=== PATIENT | female | born 1955 | race African-American/Black ===

== ENCOUNTER 2023-03-12 11:33 | Outpatient (AMB) | payer MEDICARE, SELFPAY ==
--- NOTE | 2023-03-12 11:43 | HO.NEPHOV ---
HPI HPI Comments History of Present Illness Details Nancy is a pleasant 67-year-old woman with a history of chronic disease in a setting of coronary disease status post stent placement history of cardiac arrest status post defibrillator and hypertension. She is here for her usual follow-up. She is on both Entresto and Aldactone. She had an episode of hyperkalemia in the past during which time these medications were held. There been restarted after renal function returned to baseline. She has no shortness of breath No significant edema. No urinary symptoms. Appetite is fair Vital Signs 03/12/23 11:51 Height 5 ft 4 in Weight 184 lb BMI 31.6 BP 142/80 H Blood Pressure Location Rt brachial Position Sitting Pulse 80 Pulse Source Pulse Oximeter Pulse Oximetry (%) 98 Oxygen Delivery Method Room Air Physical Exam Vital Signs: Last Vital Signs Pulse 80 03/12/23 11:51 BP 142/80 H 03/12/23 11:51 Pulse Ox 98 03/12/23 11:51 Oxygen Delivery Method Room Air 03/12/23 11:51 BMI result Body Mass Index 31.6 Const General: comfortable Nutritional Appearance: well nourished Orientation/consciousness: patient oriented x3 HEENT Head: No normal to inspection Mouth: moist mucous membranes Neck Neck: Yes supple and Yes no JVD Resp Auscultation: clear to auscultation bilaterally, no rales and rub present Cardio Jugular venous distension: no JVD Palpation: no palpable S3 and no palpable S4 Heart sounds: no rubs GI Palpation (GI): Soft to palpation and nontender Percussion: No Fluid wave present General: Yes no CVA tenderness Back/Spine/Pelvis Back: no CVA tenderness Skin General skin exam: no rashes or lesions noted Neuro General: patient oriented x3 Extrem General: Yes no pedal edema and No clubbing Results Reviewed Results Reviewed: Lab results were reviewed. The TSH was done several months ago. The recent creatinine was 5 months ago which was reviewed. 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 She has had episodes of acute kidney injury which seems to resolve. Renal function is back to baseline. Goal is to slow the progression of disease. Continue to avoid nephrotoxic agents. Will continue to monitor renal function closely. History of hyperkalemia in the past. She is on both Entresto and spironolactone. Increased interest and low-potassium diet Will recheck serum electrolytes. History of congestive heart failure She appears well compensated Needs to stay on low-sodium diet Follow-up with Cardiology. History of hypothyroidism. She is on Synthroid Recent TSH was very low. I will recheck TSH again. History of anemia. Repeat hemoglobin ordered. Thus far there is no indication for Epogen. Orders: Orders Creatinine Today E03.9 - Hypothyroidism, unspecified, E11.22 - Type 2 diabetes mellitus with diabetic chronic kidney disease, N18.9 - Chronic kidney disease, unspecified Calcium Today E03.9 - Hypothyroidism, unspecified, E11.22 - Type 2 diabetes mellitus with diabetic chronic kidney disease, N18.9 - Chronic kidney disease, unspecified TSH reflex Free T4 Today E03.9 - Hypothyroidism, unspecified, E11.22 - Type 2 diabetes mellitus with diabetic chronic kidney disease, N18.9 - Chronic kidney disease, unspecified Electrolytes Today E03.9 - Hypothyroidism, unspecified, E11.22 - Type 2 diabetes mellitus with diabetic chronic kidney disease, N18.9 - Chronic kidney disease, unspecified Blood Urea Nitrogen Today E03.9 - Hypothyroidism, unspecified, E11.22 - Type 2 diabetes mellitus with diabetic chronic kidney disease, N18.9 - Chronic kidney disease, unspecified Coding Level of Care Code New Pt Level 4 (81243) Diagnoses CKD (chronic kidney disease) N18.9 CHF (congestive heart failure) I50.9 Hypothyroid E03.9 Diabetes mellitus with chronic kidney disease E11.22
[2023-03-12 11:51] VITALS: BP 142/80; PULSE 80; O2SAT 98; BMI 31.6
== END 2023-03-12 12:12 | disposition home or self-care (01) ==
PROVIDERS: PCP Internal Medicine; Visit Provider Internal Medicine Hypertension Specialist
DX: N18.9 Chronic kidney disease, unspecified (principal); I50.9 Heart failure, unspecified; E03.9 Hypothyroidism, unspecified; E11.22 Type 2 diabetes mellitus with diabetic chronic kidney disease
CPT/HCPCS: 99204

== ENCOUNTER → 2023-03-12 11:33 | Outpatient (BNVA) | payer MEDICARE, SELFPAY | PROVIDERS: PCP Internal Medicine; Visit Provider Internal Medicine Hypertension Specialist | DX: E11.22 Type 2 diabetes mellitus with diabetic chronic kidney disease (principal); I25.10 Atherosclerotic heart disease of native coronary artery without angina pectoris; I10 Essential (primary) hypertension; E03.9 Hypothyroidism, unspecified; N18.9 Chronic kidney disease, unspecified; Z95.5 Presence of coronary angioplasty implant and graft | CPT/HCPCS: 99202 ==

== ENCOUNTER 2023-05-14 13:33 | Outpatient (AMB) | payer MEDICARE, SELFPAY ==
--- NOTE | 2023-05-14 13:35 | HO.NEPHOV ---
HPI HPI Comments History of Present Illness Details Nancy is a pleasant 67-year-old woman with a history of chronic disease in a setting of coronary disease status post stent placement history of cardiac arrest status post defibrillator and hypertension. She is here for her usual follow-up. She is on both Entresto and Aldactone. She had an episode of hyperkalemia in the past during which time these medications were held. There been restarted after renal function returned to baseline. She has no shortness of breath No significant edema. No urinary symptoms. Appetite is fair [facility] Family History (Updated 05/14/23 @ 13:45 by Maria C Kothari) Son Hypertrophic cardiomyopathy Daughter Hypertrophic cardiomyopathy Son Hypertrophic cardiomyopathy Social History (Updated 05/14/23 @ 13:43 by Maria C Kothari) Alcohol intake: current Patient Tobacco Use Status: Former Tobacco user Vital Signs 05/14/23 13:36 Height 5 ft 4 in Weight 178 lb 6 oz BMI 30.6 BP 130/78 Blood Pressure Location Lt brachial Position Sitting Pulse 73 Pulse Source Pulse Oximeter Pulse Oximetry (%) 99 Oxygen Delivery Method Room Air Physical Exam Vital Signs: Last Vital Signs Pulse 73 05/14/23 13:36 BP 130/78 05/14/23 13:36 Pulse Ox 99 05/14/23 13:36 Oxygen Delivery Method Room Air 05/14/23 13:36 BMI result Body Mass Index 30.6 Const General: comfortable Nutritional Appearance: well nourished Orientation/consciousness: patient oriented x3 HEENT Head: No normal to inspection Mouth: moist mucous membranes Neck Neck: Yes supple and Yes no JVD Resp Auscultation: clear to auscultation bilaterally, no rales and rub present Cardio Jugular venous distension: no JVD Palpation: no palpable S3 and no palpable S4 Heart sounds: no rubs GI Palpation (GI): Soft to palpation and nontender Percussion: No Fluid wave present General: Yes no CVA tenderness Back/Spine/Pelvis Back: no CVA tenderness Skin General skin exam: no rashes or lesions noted Neuro General: patient oriented x3 Extrem General: Yes no pedal edema and No clubbing Assessment & Plan Assessment & Plan (1) CHF (congestive heart failure): Code(s): I50.9 - Heart failure, unspecified (2) Hypothyroid: Code(s): E03.9 - Hypothyroidism, unspecified (3) Diabetes mellitus with chronic kidney disease: Code(s): E11.22 - Type 2 diabetes mellitus with diabetic chronic kidney disease (4) CKD (chronic kidney disease): Code(s): N18.9 - Chronic kidney disease, unspecified Plan Middle-aged woman with a history of stage 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 She has had episodes of acute kidney injury which seems to resolve. Renal function is back to baseline. Goal is to slow the progression of disease. Continue to avoid nephrotoxic agents. Will continue to monitor renal function closely. History of hyperkalemia in the past. She is on both Entresto and spironolactone. Discussed low-potassium diet Follow serum electrolytes. History of congestive heart failure She appears well compensated Needs to stay on low-sodium diet Follow-up with Cardiology. History of hypothyroidism. She is on Synthroid Recent TSH was acceptable. History of anemia. Hemoglobin has improved Thus far there is no indication for Epogen. Orders: Orders Creatinine 5 Months E03.9 - Hypothyroidism, unspecified, E11.22 - Type 2 diabetes mellitus with diabetic chronic kidney disease, I50.9 - Heart failure, unspecified, N18.9 - Chronic kidney disease, unspecified Calcium 5 Months E03.9 - Hypothyroidism, unspecified, E11.22 - Type 2 diabetes mellitus with diabetic chronic kidney disease, I50.9 - Heart failure, unspecified, N18.9 - Chronic kidney disease, unspecified TSH reflex Free T4 5 Months E03.9 - Hypothyroidism, unspecified, E11.22 - Type 2 diabetes mellitus with diabetic chronic kidney disease, I50.9 - Heart failure, unspecified, N18.9 - Chronic kidney disease, unspecified Electrolytes 5 Months E03.9 - Hypothyroidism, unspecified, E11.22 - Type 2 diabetes mellitus with diabetic chronic kidney disease, I50.9 - Heart failure, unspecified, N18.9 - Chronic kidney disease, unspecified Blood Urea Nitrogen 5 Months E03.9 - Hypothyroidism, unspecified, E11.22 - Type 2 diabetes mellitus with diabetic chronic kidney disease, I50.9 - Heart failure, unspecified, N18.9 - Chronic kidney disease, unspecified Complete Blood Count no Diff 5 Months E03.9 - Hypothyroidism, unspecified, E11.22 - Type 2 diabetes mellitus with diabetic chronic kidney disease, I50.9 - Heart failure, unspecified, N18.9 - Chronic kidney disease, unspecified Coding Level of Care Code Est Pt Level 4 (19656) Diagnoses CHF (congestive heart failure) I50.9 Hypothyroid E03.9 Diabetes mellitus with chronic kidney disease E11.22 CKD (chronic kidney disease) N18.9 Results Reviewed Results Reviewed: 05/09/23 Cr 1.2 K 4.4 Urine MACR 945 Nephrology Results: No Data to Display
[2023-05-14 13:36] VITALS: BP 130/78; PULSE 73; O2SAT 99; BMI 30.6
== END 2023-05-14 14:02 | disposition home or self-care (01) ==
PROVIDERS: PCP Internal Medicine; Visit Provider Internal Medicine Hypertension Specialist
DX: I50.9 Heart failure, unspecified (principal); E03.9 Hypothyroidism, unspecified; E11.22 Type 2 diabetes mellitus with diabetic chronic kidney disease; N18.9 Chronic kidney disease, unspecified
CPT/HCPCS: 99214

== ENCOUNTER → 2023-05-14 13:33 | Outpatient (BNVA) | payer MEDICARE, SELFPAY | PROVIDERS: PCP Internal Medicine; Visit Provider Internal Medicine Hypertension Specialist | DX: E11.22 Type 2 diabetes mellitus with diabetic chronic kidney disease (principal); N18.9 Chronic kidney disease, unspecified; I50.9 Heart failure, unspecified; E03.9 Hypothyroidism, unspecified | CPT/HCPCS: 99212 ==

== ENCOUNTER 2023-10-15 08:57 | Outpatient (AMB) | payer MEDICARE, SELFPAY ==
[2023-10-15 09:06] VITALS: BP 140/90; PULSE 73; O2SAT 97
--- NOTE | 2023-10-15 09:06 | HO.NEPHOV_ITS ---
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 Accompanied by: Self / Same As Patient Allergies lisinopril Allergy (Verified 10/15/23 09:09) Cough ondansetron [From Zofran] Allergy (Verified 10/15/23 09:09) Hives simvastatin Allergy (Verified 10/15/23 09:09) Muscle Pain statins Allergy (Uncoded 05/07/23 15:09) Muscle Pain Medication List - Last Reconciled 10/15/23 by Driss Gr MD aspirin 81 mg PO DAILY cetirizine (Zyrtec) 10 mg PO DAILY PRN cholecalciferol (vitamin D3) 25 mcg PO DAILY empagliflozin (Jardiance) 10 mg PO DAILY insulin pump cart,10 units/day (Omnipod Go Pods 10 units/day subcutaneous cartridge) As directed levothyroxine 175 mcg PO DAILY metformin 500 mg PO BID metoprolol succinate ER 100 mg PO BID rosuvastatin 40 mg PO DAILY sacubitril-valsartan 97-103 mg (Entresto) 1 tab PO BID sertraline 50 mg PO DAILY spironolactone 25 mg PO DAILY HPI Comments Details: Nancy is a pleasant 67-year-old woman with a history of chronic disease in a setting of coronary disease status post stent placement history of cardiac arrest status post defibrillator and hypertension. She is here for her usual follow-up. She is on both Entresto and Aldactone. She had an episode of hyperkalemia in the past during which time these medications were held. There been restarted after renal function returned to baseline. She has no shortness of breath No significant edema. No urinary symptoms. Appetite is fair 10/15/2023. Overall she is doing well. She is lost few lb. [facility] Family History Son Hypertrophic cardiomyopathy Daughter Hypertrophic cardiomyopathy Son Hypertrophic cardiomyopathy Social History (Reviewed 10/15/23 @ 09:09 by TITUS Cuellar Alcohol intake: current Patient Tobacco Use Status: Former Tobacco user Physical Exam Vital Signs: Last Vital Signs Pulse 73 10/15/23 09:06 BP 140/90 H 10/15/23 09:06 Pulse Ox 97 10/15/23 09:06 Oxygen Delivery Method Room Air 10/15/23 09:06 BMI result Body Mass Index 30.0 Const General: comfortable Nutritional Appearance: well nourished Orientation/consciousness: patient oriented x3 HEENT Head: No normal to inspection Mouth: moist mucous membranes Neck Neck: Yes supple and Yes no JVD Resp Auscultation: clear to auscultation bilaterally, no rales and rub present Cardio Jugular venous distension: no JVD Palpation: no palpable S3 and no palpable S4 Heart sounds: no rubs GI Palpation (GI): Soft to palpation and nontender Percussion: No Fluid wave present General: Yes no CVA tenderness Back/Spine/Pelvis Back: no CVA tenderness Skin General skin exam: no rashes or lesions noted Neuro General: patient oriented x3 Extrem General: Yes no pedal edema and No clubbing Results Reviewed Nephrology Results: No Data to Display Assessment & Plan Assessment & Plan (1) CHF (congestive heart failure): Code(s): I50.9 - Heart failure, unspecified Category: Medical (2) Hypothyroid: Code(s): E03.9 - Hypothyroidism, unspecified Category: Medical (3) Diabetes mellitus with chronic kidney disease: Code(s): E11.22 - Type 2 diabetes mellitus with diabetic chronic kidney disease Category: Medical (4) CKD (chronic kidney disease): Code(s): N18.9 - Chronic kidney disease, unspecified Category: Medical Plan Middle-aged woman with a history of stage 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 She has had episodes of acute kidney injury which seems to resolve. Renal function is back to baseline. Goal is to slow the progression of disease. Continue to avoid nephrotoxic agents. Will continue to monitor renal function closely. History of hyperkalemia in the past. She is on both Entresto and spironolac tone. Discussed low-potassium diet Follow serum electrolytes. History of congestive heart failure She appears well compensated Needs to stay on low-sodium diet Follow-up with Cardiology. History of hypothyroidism. She is on Synthroid Recent TSH was acceptable. History of anemia. Hemoglobin has improved Thus far there is no indication for Epogen. Orders: Orders Comprehensive Met. Panel 5 Months N18.9 - Chronic kidney disease, unspecified Vitamin D 25-OH (D2 and D3) 5 Months N18.9 - Chronic kidney disease, unspecified Complete Blood Count Auto Diff 5 Months N18.9 - Chronic kidney disease, unspecified Coding Level of Care Code Est Pt Level 4 (31719) Diagnoses CHF (congestive heart failure) I50.9 Hypothyroid E03.9 Diabetes mellitus with chronic kidney disease E11.22 CKD (chronic kidney disease) N18.9
[2023-10-15 09:24] VITALS: BP 130/82
== END 2023-10-15 09:27 | disposition home or self-care (01) ==
PROVIDERS: PCP Internal Medicine; Visit Provider Internal Medicine Hypertension Specialist
DX: I50.9 Heart failure, unspecified (principal); E03.9 Hypothyroidism, unspecified; E11.22 Type 2 diabetes mellitus with diabetic chronic kidney disease; N18.9 Chronic kidney disease, unspecified
CPT/HCPCS: 99214

== ENCOUNTER → 2023-10-15 08:57 | Outpatient (BNVA) | payer MEDICARE, SELFPAY | PROVIDERS: PCP Internal Medicine; Visit Provider Internal Medicine Hypertension Specialist ==

== ENCOUNTER 2023-10-15 08:58 | Outpatient (REF) | payer MEDICARE, SELFPAY ==
[2023-10-15 18:08] LABS: Hemoglobin 12.1 g/dl (12.0-16.0); Mean Corpuscular HGB Conc 32.7 g/dl (31.0-35.0); Mean Corpuscular Hemoglobin 29.2 pg (27.0-33.0); Mean Corpuscular Volume 89.2 fL (80.0-98.0); Mean Platelet Volume 11.9 fL (9.4-12.3); Platelet Count 247 X10*3/uL (160-400); Red Blood Count 4.15 X10*6/uL (4.20-5.50); Red Cell Distribution Width 14.2 % (11.0-16.0); White Blood Count 8.4 X10*3/uL (4.8-10.8)
[2023-10-15 18:35] LABS: Anion Gap 11 (12-20); Blood Urea Nitrogen 27 mg/dL (9-16); Calcium 9.7 mg/dL (8.4-10.2); Carbon Dioxide 27 mmol/L (22-29); Chloride 107 mmol/L (96-108); Estimated Glomerular Filt Rate 43; Potassium 4.2 mmol/L (3.3-5.1); Sodium 141 mmol/L (135-145)
[2023-10-15 18:54] LABS: TSH reflex Free T4 46.04 uIU/mL (0.32-4.0)
[2023-10-15 20:29] LABS: Free T4 (Free Thyroxine) 0.99 ng/dL (0.71-1.85)
== END 2023-10-15 08:59 | disposition home or self-care (01) ==
LOC: HO.HKASLDS 08:58
PROVIDERS: Visit Provider Internal Medicine Hypertension Specialist
DX: E11.22 Type 2 diabetes mellitus with diabetic chronic kidney disease (principal); E03.9 Hypothyroidism, unspecified; I13.0 Hypertensive heart and chronic kidney disease with heart failure and stage 1 through stage 4 chronic kidney disease, or unspecified chronic kidney disease; I50.9 Heart failure, unspecified; N18.30 Chronic kidney disease, stage 3 unspecified
CPT/HCPCS: 36415; 80051; 82310; 82565; 84439; 84443; 84520; 85027; 99212

== ENCOUNTER 2024-01-26 09:41 | Outpatient (REF) | payer MEDICARE, SELFPAY | END 2024-01-26 09:42 | disposition home or self-care (01) | LOC: HO.HOSX 09:41 | PROVIDERS: Visit Provider Physician Assistant | DX: M25.512 Pain in left shoulder (principal) | CPT/HCPCS: 73030 ==

== ENCOUNTER 2024-03-31 09:23 | Outpatient (AMB) | payer MEDICARE, SELFPAY ==
--- NOTE | 2023-10-16 09:36 | HO.NEPHOV ---
Intake Visit Reasons: 5 mon follow up Allergies lisinopril Allergy (Verified 10/15/23 09:09) Cough ondansetron [From Zofran] Allergy (Verified 10/15/23 09:09) Hives simvastatin Allergy (Verified 10/15/23 09:09) Muscle Pain statins Allergy (Uncoded 05/07/23 15:09) Muscle Pain PFSH Family History Son Hypertrophic cardiomyopathy Daughter Hypertrophic cardiomyopathy Son Hypertrophic cardiomyopathy Social History Alcohol intake: current Patient Tobacco Use Status: Former Tobacco user Results Reviewed Nephrology Results: Hgb 12.1 g/dl (12.0-16.0) 10/15/23 WBC 8.4 X10*3/uL (4.8-10.8) 10/15/23 Plt Count 247 X10*3/uL (160-400) 10/15/23 Sodium 141 mmol/L (135-145) 10/15/23 Potassium 4.2 mmol/L (3.3-5.1) 10/15/23 Chloride 107 mmol/L (96-108) 10/15/23 Carbon Dioxide 27 mmol/L (22-29) 10/15/23 BUN 27 mg/dL (9-16) H 10/15/23 Creatinine 1.25 mg/dL (0.5-1.4) 10/15/23 Calcium 9.7 mg/dL (8.4-10.2) 10/15/23 Coding
[2024-03-31 09:25] VITALS: BP 100/78; PULSE 92; O2SAT 99; BMI 28.0
--- NOTE | 2024-03-31 09:25 | HO.NEPHOV ---
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 Accompanied by: Self / Same As Patient Allergies lisinopril Allergy (Verified 03/31/24 09:27) Cough ondansetron [From Zofran] Allergy (Verified 03/31/24 09:27) Hives simvastatin Allergy (Verified 03/31/24 09:27) Muscle Pain statins Allergy (Uncoded 05/07/23 15:09) Muscle Pain Medication List - Last Reconciled 03/31/24 by Driss Gr MD aspirin 81 mg PO DAILY cetirizine (Zyrtec) 10 mg PO DAILY PRN cholecalciferol (vitamin D3) 25 mcg PO DAILY empagliflozin (Jardiance) 25 mg PO DAILY insulin aspart U-100 (Novolog U-100 Insulin aspart) subcut DAILY insulin pump cart,10 units/day (Omnipod Go Pods 10 units/day subcutaneous cartridge) As directed insulin pump cart,auto,BT,G6/7 (Omnipod 5 G6-G7 Pods (Gen 5) subcutaneous cartridge) As directed levothyroxine 200 mcg PO DAILY metoprolol succinate ER 100 mg PO BID rosuvastatin 40 mg PO DAILY sacubitril-valsartan 97-103 mg (Entresto) 1 tab PO BID sertraline 50 mg PO DAILY spironolactone 25 mg PO DAILY tirzepatide (Mounjaro) mg subcut QWEEK HPI Comments Details: Nancy is a pleasant 67-year-old woman with a history of chronic disease in a setting of coronary disease status post stent placement history of cardiac arrest status post defibrillator and hypertension. She is here for her usual follow-up. She is on both Entresto and Aldactone. She had an episode of hyperkalemia in the past during which time these medications were held. There been restarted after renal function returned to baseline. She has no shortness of breath No significant edema. No urinary symptoms. Appetite is fair 10/15/2023. Overall she is doing well. She is lost few lb. 03/31/24 Neck pain s/p Prednisone. No NSAIDS PFSH Family History Son Hypertrophic cardiomyopathy Daughter Hypertrophic cardiomyopathy Son Hypertrophic cardiomyopathy Social History Alcohol intake: current Patient Tobacco Use Status: Former Tobacco user Physical Exam Vital Signs: Last Vital Signs Pulse 92 03/31/24 09:25 BP 100/78 03/31/24 09:25 Pulse Ox 99 03/31/24 09:25 Oxygen Delivery Method Room Air 03/31/24 09:25 BMI result Body Mass Index 28.0 Comfortable Neck supple no JVD. Lungs entry equal no rales. Heart S1-S2 heard no gallop or rub. Abdomen soft nontender. Neuro alert awake oriented. No asterixis. Extremities no edema. Results Reviewed Nephrology Results: Hgb 12.1 g/dl (12.0-16.0) 10/15/23 WBC 8.4 X10*3/uL (4.8-10.8) 10/15/23 Plt Count 247 X10*3/uL (160-400) 10/15/23 Sodium 141 mmol/L (135-145) 10/15/23 Potassium 4.2 mmol/L (3.3-5.1) 10/15/23 Chloride 107 mmol/L (96-108) 10/15/23 Carbon Dioxide 27 mmol/L (22-29) 10/15/23 BUN 27 mg/dL (9-16) H 10/15/23 Creatinine 1.25 mg/dL (0.5-1.4) 10/15/23 Calcium 9.7 mg/dL (8.4-10.2) 10/15/23 Assessment & Plan Assessment & Plan (1) CHF (congestive heart failure): Code(s): I50.9 - Heart failure, unspecified Category: Medical (2) Hypothyroid: Code(s): E03.9 - Hypothyroidism, unspecified Category: Medical (3) Diabetes mellitus with chronic kidney disease: Code(s): E11.22 - Type 2 diabetes mellitus with diabetic chronic kidney disease Category: Medical (4) CKD (chronic kidney disease): Code(s): N18.9 - Chronic kidney disease, unspecified Category: Medical Plan Middle-aged woman with a history of stage 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 She has had episodes of acute kidney injury which seems to resolve. Renal function is back to baseline. Goal is to slow the progression of disease. Continue to avoid nephrotoxic agents. Will continue to monitor renal function closely. History of hyperkalemia in the past. She is on both Entresto and spironolactone. Discussed low-potassium diet Follow serum electrolytes. History of congestive heart failure She appears well compensated Needs to stay on low-sodium diet Follow-up with Cardiology. History of hypothyroidism. She is on Synthroid ;s/p Thyroid US recently Recent TSH was 7.44 on 03/29 - follow up with PCP/Endocrine History of anemia. Hemoglobin has improved Thus far there is no indication for Epogen. Orders: Orders Total Protein Urine Random 6 Months N18.9 - Chronic kidney disease, unspecified Creatinine Urine 6 Months N18.9 - Chronic kidney disease, unspecified Basic Metabolic Panel 6 Months N18.9 - Chronic kidney disease, unspecified Coding Level of Care Code Est Pt Level 4 (57454) Diagnoses CHF (congestive heart failure) I50.9 Hypothyroid E03.9 Diabetes mellitus with chronic kidney disease E11.22 CKD (chronic kidney disease) N18.9
== END 2024-03-31 09:43 | disposition home or self-care (01) ==
PROVIDERS: PCP Internal Medicine; Visit Provider Internal Medicine Hypertension Specialist
DX: I50.9 Heart failure, unspecified (principal); E03.9 Hypothyroidism, unspecified; E11.22 Type 2 diabetes mellitus with diabetic chronic kidney disease; N18.9 Chronic kidney disease, unspecified
CPT/HCPCS: 99214

== ENCOUNTER → 2024-03-31 09:23 | Outpatient (BNVA) | payer MEDICARE, SELFPAY | PROVIDERS: PCP Internal Medicine; Visit Provider Internal Medicine Hypertension Specialist | DX: E11.22 Type 2 diabetes mellitus with diabetic chronic kidney disease (principal); I50.9 Heart failure, unspecified; E03.9 Hypothyroidism, unspecified; N18.9 Chronic kidney disease, unspecified | CPT/HCPCS: 99212 ==

== ENCOUNTER 2024-09-28 14:21 | Outpatient (REF) | payer MEDICARE, MEDICAID, SELFPAY ==
--- OUTSIDE RECORDS SUMMARY | 2024-09-28 17:21 | XMS_ITS | Clinical Summary ---
Author Organization [facility] Address [address] [place] [address] Care Team Providers Care Manifold Operator Name Role Phone Gen Trujillo MD Primary Care Provider [phone] Source Comments PLEASE NOTE, if this patient is a minor, it may be UNLAWFUL to discuss sensitive information that is contained in these records (such as FAMILY PLANNING, MENTAL HEALTH or SUBSTANCE ABUSE) with the minor patient's parent or other person without the patient's specific authorization.[facility] Allergies Active Allergy Reactions Criticality Noted Date Comments Lisinopril 05/04/2020 Metformin GI intolerance 02/19/2024 Nausea and diarrhea Ondansetron 08/29/2020 Other reaction(s): hives Medications cholecalciferol (VITAMIN D-3) 25 mcg (1,000 unit) tablet Take 1 Tablet by mouth daily 30 Tablet 07/27/19 23 Active sertraline (ZOLOFT) 50 mg tablet Take 1 Tablet by mouth once daily for 90 days 90 Tablet 05/07/19 24 Active levothyroxine 200 mcg tablet Take 200 mcg by mouth once daily 10/16/19 24 Active aspirin [address] tablet Take 1 Tablet by mouth once daily 90 Tablet 12/10/19 24 Active cetirizine (ZYRTEC) 10 mg tabletIndications: Allergic rhinitis, unspecified seasonality, unspecified trigger Take 1 Tablet by mouth daily. 90 Tablet 12/10/19 24 Active blood-glucose sensor (DEXCOM G7 SENSOR) deviIndications:Ty pe 2 diabetes mellitus with diabetic polyneuropathy, with long-term current use of insulin ([facility]) Apply 1 sensor to back of upper arm every 10 days. Use to check glucose at least 3 times daily. (Dexcom G7 sensors) 9 Each 3 03/05/20 24 Active pregabalin (LYRICA) 75 mg capsule 02/19/20 24 Active metoprolol succinate XL (TOPROL-XL) 100 mg 24 hr tabletIndications: Hypertrophic cardiomyopathy ([facility]),ICD (implantable cardioverter-defib rillator) in place,Essential hypertension Take 1 Tablet by mouth every morning For blood pressure. 90 Tablet 3 04/22/19 25 Active sacubitriL-valsart an (ENTRESTO) 97-103 mg tabIndications:Hyp ertrophic cardiomyopathy ([facility]),ICD (implantable cardioverter-defib rillator) in place,Essential hypertension Take 1 Tablet by mouth 2 (two) times daily 180 Tablet 3 04/22/19 25 Active spironolactone (ALDACTONE) 25 mg tabletIndications: Hypertrophic cardiomyopathy ([facility]),ICD (implantable cardioverter-defib rillator) in place,Essential hypertension Take 1 Tablet by mouth every morning For blood pressure. 90 Tablet 3 04/22/19 25 Active rosuvastatin (CRESTOR) 40 mg tabletIndications: Type 2 diabetes mellitus with diabetic polyneuropathy, with long-term current use of insulin ([facility]),Hypertro phic cardiomyopathy ([facility]),Essentia l hypertension Take 1 Tablet by mouth nightly at bedtime For cholesterol 90 Tablet 3 04/22/19 25 Active tirzepatide (MOUNJARO) 7.5 mg/0.5 mL pnijIndications:Ty pe 2 diabetes mellitus with diabetic polyneuropathy, with long-term current use of insulin ([facility]) Inject 7.5 mg into the skin once a week Every Friday stop 10 mg 2 mL 5 04/22/19 25 Active meclizine (ANTIVERT) 25 mg tabletIndications: Benign paroxysmal positional vertigo, unspecified laterality Take 1 Tablet by mouth 2 (two) times daily as needed for nausea 60 Tablet 06/18/19 25 Active blood sugar diagnostic (ONETOUCH VERIO TEST STRIPS) stripsIndications: Type 2 diabetes mellitus with diabetic polyneuropathy, with long-term current use of insulin ([facility]) Use to test blood glucose once daily (OneTouch Verio Test Strips) 100 Each 3 07/30/19 25 Active alcohol swabsIndications:T ype 2 diabetes mellitus with diabetic polyneuropathy, with long-term current use of insulin ([facility]) Use to test blood glucose once daily. 100 Each 07/30/19 25 Active lancets (ONETOUCH DELICA PLUS LANCET) 33 gaugeIndications:T ype 2 diabetes mellitus with diabetic polyneuropathy, with long-term current use of insulin ([facility]) Use to test blood glucose once daily (OneTouch Delica 33G Lancets) 100 Each 3 07/30/19 25 Active empagliflozin (JARDIANCE) 25 mg tabIndications:Typ e 2 diabetes mellitus with diabetic polyneuropathy, with long-term current use of insulin ([facility]),Stage 3a chronic kidney disease ([facility]) Take 1 Tablet by mouth every morning (Take with plenty of water throughout the day) 30 Tablet 5 07/30/19 25 Active MISCELLANEOUS MEDICAL SUPPLY MISC Cane. Dx right knee osteoarthritis. Length of need 99 months 1 Each 1 08/14/19 Active Active Problems Problem Noted Date Diagnosed Date Non compliance w medication regimen 10/30/2023 Depression with anxiety 06/02/2020 Stage 3a chronic kidney disease ([facility]) 2020 Overview (04/22/2024): 10/15/23 - [facility] [place]uru Naqvi Goal is to slow the progression of disease. Continue to avoid nephrotoxic agents. Hx of hyperkalemia in the past, pt taking Entresto and spironolactone. Discussed low-potassium diet. Hx of CHF, well-compensated low-sodium diet, f/u with cardio. Hx of hypothyroidism, on Synthroid, recent TSH acceptable . Hx of anemia, hemoglobin improved. No indication for Epogen. Hyperlipidemia LDL goal <70 05/05/2020 Hypertrophic cardiomyopathy ([facility]) 05/05/2020 Overview (12/11/2023): Entresto 97/103 mg twice daily Metoprolol succinate ER 100 mg daily Spironolactone 25 mg daily Reduced EF 35% in 2019, now recovered. Hx cardiopulmonary arrest followed by ROSC & hypothermia protocol in 2011. [address] Follows with [facility] & [facility]. ALEX on CPAP 05/05/2020 Type 2 diabetes mellitus wit h diabetic polyneuropathy, with long-term current use of insulin ([facility]) 05/05/2020 Overview (07/29/2024): DM dx: ~1997 per patient reports Glucometer: Dexcom G7 (stopped Omnipod 04/07/24 due to hypoglycemia) Current Diabetes RX: Jardiance 25 mg daily every morning (take with plenty of water throughout the day) Mounjaro 7.5 mg once weekly every Friday FIONA-I/ARB: Entresto 97/103 mg twice daily Statin: Rosuvastatin 40 mg daily every evening Pneumococcal vaccine: PCV13 (09/21/21) PPSV23 (08/11/20, 06/03/18, 08/31/09) Diabetes foot exam: 11/07/22 per , pending referral 11/13/23, patient will contact office to schedule appt Diabetes retinal exam: 07/01/24 at [facility] Bilateral pinguecula - condition is stable Bilateral nuclear sclerotic cataract - condition is stable Cortical cataract - condition is worse (R/L) No CLINICAL RESEARCHER/HTN retinopathy, no macular edema Hyperopia, astigmatism, presbyopia 05/05/23 at [facility] Bilateral: pinguecula, epiphora: using clear eyes, bilateral:cortical cataract, nuclear sclerotic cataract, condition is worse Bilateral C/D R>L, left eye: Mild CLINICAL RESEARCHER (ST) improved from No macular edema. No HTN retinopathy. Hyperopia, astigmatism. Presbyopia. 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 Gastroesophageal reflux disease without esophagi tis 05/05/2020 Adhesive capsulitis of left shoulder 05/05/2020 Primary osteoarthritis involving multiple joints 05/05/2020 Refusal of blood transfusion s as patient is Rastafari Resolved Problems Problem Noted Date Diagnosed Date Resolved Date Class 1 obesity due to exces s calories with serious comorbidity and body mass index (BMI) of 30.0 to 30.9 in adult 10/27/2023 02/19/2024 Uses self-applied continuous glucose monitoring device 02/17/2023 02/19/2024 Diabetic polyneuropathy asso ciated with type 2 diabetes mellitus (HCC-CMS) 01/18/2022 10/27/2023 Encounters Date Type Department Care Team Description 09/09/2024 2:20 PM EDT Office Visit [address] [phone] Nasima Ko RN Diabetic feet (HCC-CMS) (Primary Dx) 08/11/2024 3:00 PM EDT Office Visit [address] [phone] Gen Trujillo MD Type 2 diabetes mellitus with diabetic polyneuropathy, with long-term current use of insulin ([facility]) (Primary Dx); Hypertrophic cardiomyopathy (HCC-CMS); Essential hypertension; Cervical radiculopathy; Hypercholesterolemia; Stage 3a chronic kidney disease (HCC-CMS); Diabetic polyneuropathy associated with type 2 diabetes mellitus (HCC-CMS); Primary osteoarthritis involving multiple joints 08/11/2024 Results Follow-Up [facility] [address] [place] [address] Irving Hand PharmD GLUCOSE, BLOOD BY GLUCOSE MONITORING DEVICE (CLIA WAIVED)POCT, HEMOGLOBIN GLYCOSYLATED A1C, VITAMIN B12 & FOLATE, Additional followed-up results: 2 07/29/2024 9:00 AM EDT Office Visit [address] [phone] Irving Hand PharmD Type 2 diabetes mellitus with diabetic polyneuropathy, with long-term current use of insulin ([facility]) (Primary Dx); Hypertrophic cardiomyopathy (HCC-CMS); ICD (implantable cardioverter-defibrill ator) in place; Essential hypertension; Hyperlipidemia LDL goal <70; Stage 3a chronic kidney disease (HCC-CMS) from Last 3 Months Immunizations Immunization Administration Dates Next Due Flu, Cell Culture based, Pre servative Free, 6m+, Flucelvax 01/26/2020 Flu, Preservative Free 02/09/2021 INFLUENZA, SEASONAL, INJECTABLE 01/12/20 20,05/27/2019,01/29/2018,01/30,01/26/2014,01/14/2013,01/24/2012 Influenza (FLUZONE), high-do se, trivalent, PF 01/16/2024 Influenza, Whole 01/18/2009,03/03/2008, 8 Moderna COVID-19 Vaccine, re d cap blue label, 12+ Primary Series 03/23/2021,07/22/2020,06/17/2020 PFIZER COVID VACCINE, PURPLE CAP, 12+ 07/15/2020 PNEUMOCOCCAL CONJUGATE PCV 13 09/21/2021 PNEUMOCOCCAL POLYSACCHARIDE PPV23 (Pneumovax 23) 08/11/2020,06/03/2018,08/31/2009 TDAP 08/25/2020,08/31/2009 ZOSTER VACCINE, RECOMBINANT (SHINGRIX) ,05/17/2020 Social History Tobacco Use Types Packs/Day Years Used Date Smoking Tobacco: Former Cigarettes 1 4 0 04/21/1976 - 04/21/1980 Smokeless Tobacco: Never Tobacco Cessation:Counseling Given: Not Answered Alcohol Use Standard Drinks/Week Comments Never 0 (1 standard drink = 0.6 oz pur e alcohol) Social Connections Answer Date Recorded Connectedness 1 02/06/2024 Financial Resource Strain Answer Date R ecorded Financial Resource Strain 1 2023 Stress Answer Date Recorded Stress 1 02/06/2024 Physical Activity Answer Date Recorded Physical Activity 0 05/04/2020 Food Insecurity Answer Date Recorded Food 1 02/06/2024 Transportation Needs Answer Date Record ed Transportation 1 02/06/2024 Housing Stability Answer Date Recorded Housing 1 02/06/2024 Safety and Environment Answer Date Mirza rded Safety 0 01/18/2022 Utilities Answer Date Recorded Utilities 1 02/06/2024 Employment Answer Date Recorded Stress 0 01/18/2022 Comments No Sex and Gender Information Value Date Recorded Sex Assigned at Female 05/04/2020 10:04 AM PST Legal Sex Female 12:39 PM PST Gender Identity Female 05/04/2020 10:04 AM PST Sexual Orientation Straight 05/05/2020 12 :12 PM PST Last Filed Vital Signs Vital Sign Reading Time Taken Comments Blood Pressure 117/73 08/11/2024 3:23 PM EDT Pulse 69 08/11/2024 3:23 PM EDT Temperature 36.6 ??C (97.8 ??F) 08/11/2024 3:23 PM ED T Respiratory Rate 18 08/11/2024 3:23 PM EDT Oxygen Saturation 97% 07/29/2024 9: 21 AM EDT Inhaled Oxygen Concentration - - Weight 66.6 kg (146 lb 12.8 oz) 08/11/2024 3:23 PM EDT Height 162.6 cm (5' 4 ) 08/11/2024 3:23 PM EDT Body Mass Index 25.2 08/11/2024 3:23 PM EDT Plan of Treatment Upcoming Encounters Date Type Department Care Team (Late st Contact Info) Description 10/06/2024 2:00 PM EDT Office Visit [address] [phone] Patricia Harvey MD [address] [place] [address] 10/28/2024 2:00 PM EDT Office Visit [address] [phone] Irving Hand, PharmD [facility] [place] [address] Health Maintenance Due Date Last Done Comments Dental Prophy 1955 Medicare Annual Wellness Visit 07/27/1973 CT Colonography 07/27/2000 FIT/gFOBT 07/27/2000 Fecal DNA 07/27/2000 Flexible Sigmoidoscopy 07/27/2000 Dental BW 11/14/2023 11/11/2022 Dental Examination 11/14/2023 11/11/2022, 03/08/2020 Dental Perio Charting 11/14/2023 11/11/2022 [id number] ( season) 2023 03/23/2021, 07/22/2020, 07/15/2020, Additional history exists Falls Prevention 05/09/2024 05/09/2023, 08/11/2020 TSH Monitoring 05/09/2024 05/09/2023, 0605/2021, 05/16/2021, Additional history exists Breast Cancer Screening (Mammogram) 07/29/2024 07/30/2023, 09/28/2021, 04/28/2019 Tobacco Screening 10/26/2024 10/27/2023 Depression Monitoring 11/10/2024 08/11/2024 , 02/06/2024, 10/24/2023, Additional history exists Serum Creatinine 02/03/2025 02/04/2024, , 09/04/2022, Additional history exists Diabetes HbA1c 02/09/2025 08/10/2024, 01/19, 10/15/2023, Additional history exists Retinopathy Screening 07/01/2025 07/01/2024 , 05/05/2023, 05/01/2022, Additional history exists Lipid Screening 08/10/2025 08/10/2024, 04/21, 05/16/2021, Additional history exists Urine Albumin Creatinine Rat io Screening 08/10/2025 08/10/2024, 05/09/2023, 09/24/2021, Additional history exists Diabetes Foot Exam 09/09/2025 09/09/2024, 0 11/07/2022, 06/02/2020 Dental FMX/Pano 11/14/2027 11/11/2022 Colonoscopy 04/28/2029 04/28/2019 Colorectal Cancer Screening 04/28/2029 Imm-DTaP/Tdap/Td (3 - Td or Tdap) 08/25/2030 021, 08/31/2009 Hepatitis C Screening Completed 05/17/2020 Imm-Zoster, Recombinant Completed 08/11/2020, 05/17 Imm-Pneumococcal 65+ Completed 09/21/2021, 08/11/2020, 06/03/2018, Additional history exists Bone Density Screening Completed 07/30/2023 Imm-Influenza Completed 01/16/2024, 01/20, 01/26/2020, Additional history exists Alcohol and Drug Screen Completed 08/12/19, 02/06/2024, 10/24/2023, Additional history exists Procedures Procedure Name Priority Date/Time Associated Diagnosis Comments LIPID PANEL Routine 08/10/2024 2:10 PM EDT Type 2 diabetes mellitus with diabetic polyneuropathy, with long-term current use of insulin ([facility]) Hyperlipidemia LDL goal <70 MICROALBUMIN/CREATINI NE RATIO, URINE, RANDOM Routine 08/10/2024 2:10 PM EDT Type 2 diabetes mellitus with diabetic polyneuropathy, with long-term current use of insulin ([facility]) VITAMIN B12 & FOLATE Routine 08/10/2024 2:10 PM EDT Type 2 diabetes mellitus with diabetic polyneuropathy, with long-term current use of insulin ([facility]) HEMOGLOBIN GLYCOSYLATED A1C Routine 08/10/2024 2:10 PM EDT Type 2 diabetes mellitus with diabetic polyneuropathy, with long-term current use of insulin ([facility]) GLUCOSE, BLOOD BY GLUCOSE MONITORING DEVICE (CLIA WAIVED)POCT Routine 07/29/2024 9:25 AM EDT Type 2 diabetes mellitus with diabetic polyneuropathy, with long-term current use of insulin ([facility]) EYE EXAM 07/01/2024 3:00 AM EDT COMPREHENSIVE METABOLIC PANEL Routine 02/04/2024 1:26 PM EDT Type 2 diabetes mellitus with diabetic polyneuropathy, with long-term current use of insulin ([facility]) DXA BONE DENSITY STUDY 1/> SITES AXIAL SKEL Routine 07/30/2023 3:00 AM EDT Ovarian failure HISTORIC MAMMOGRAM 07/30/2023 3: 00 AM EDT ASSAY OF THYROID STIMULATING HORMONE TSH Routine 05/09/2023 10:31 AM EST Acquired hypothyroidism INTRAORAL - COMP SERIES OF RADIOGRAPHIC IMAGES Routine 11/11/2022 1:40 PM EDT Caries Dental caries on smooth surface penetrating into dentin Encounter for dental examination Stage 3 grade C localized periodontitis per AAP/EFP 2017 classification COMP ORAL EVALUATION - NEW/ESTABLISHED PATIENT Routine 11/11/2022 1:40 PM EDT Caries Dental caries on smooth surface penetrating into dentin Encounter for dental examination Stage 3 grade C localized periodontitis per AAP/EFP 2017 classification HEPATITIS C ANTIBODY Routine 05/17/2020 3:39 PM EST Type 2 diabetes mellitus with diabetic polyneuropathy, with long-term current use of insulin ([facility]) from Last 3 Months or Most Recently Relevant to Health Maintenance Results * (ABNORMAL) MICROALBUMIN/CREATININE RATIO, URINE, RANDOM (08/10/2024 2:10 PM EDT) Pathologist [facility] CREATININE, RANDOM URINE 245 20 - 275 mg/dL [facility] MICROALBUMIN 24.9 mg/dL [facility] [employer] Comment: Reference Range Not established MICROALBUMIN/CREA TININE RATIO, RANDOM URINE 102(H) <30 mg/g creat [employer] [employer] [facility] Comment: The ADA defines abnormalities in albumin excretion as follows: Albuminuria Category ?Result (mg/g creatinine) Normal to Mildly increased ?? <30 Moderately increased ? 30-299 Severely increased ? > OR = 300 The ADA recommends that at least two of three specimens collected within a 3-6 month period be abnormal before considering a patient to be within a diagnostic category. Urine Urine specimen / Unknown 08/10/2024 2:10 PM EDT 08/10/2024 2:11 PM EDT us Irving Hand PharmD LAB URINE AMBULATORY Bettie l Result [facility] [address] [address], [facility] [address] [place] [address] * VITAMIN B12 & FOLATE (08/10/2024 2:10 PM EDT) [facility] VITAMIN B12 272 200 - 1,100 pg/mL [employer] Comment: Please Note: Although the reference range for vitamin B12 is 200-1100 pg/mL, it has been reported that between 5 and 10% of patients with values between 200 and 400 pg/mL may experience neuropsychiatric and hematologic abnormalities due to occult B12 deficiency; less than 1% of patients with values above 400 pg/mL will have symptoms. FOLATE, SERUM 6.1 5.5 ng/mL [employer] Comment: ? Reference Range ? Low: ? <3.4 ? Borderline: ?3.4-5.4 ? Normal: ?>5.4 Blood Blood / Unknown 08/10/2024 2 :10 PM EDT 08/10/2024 2:11 PM EDT Irving Hand PharmD LAB - BLOOD DRAW Edited R esult - Final [facility] [address] [address], [place] [employer] [address] [place] [address] * HEMOGLOBIN GLYCOSYLATED A1C (08/10/2024 2:10 PM EDT) [facility] HEMOGLOBIN A1C 5.6 <5.7 % [employer] Comment: For the purpose of screening for the presence of diabetes: <5.7% ? Consistent with the absence of diabetes 5.7-6.4% ?Consistent with increased risk for diabetes ?(prediabetes) > or =6.5% ??Consistent with diabetes This assay result is consistent with a decreased risk of diabetes. Currently, no consensus exists regarding use of hemoglobin A1c for diagnosis of diabetes in children. According to [place] [employer] Association (ADA) guidelines, hemoglobin A1c <7.0% represents optimal control in non- diabetic patients. Different metrics may apply to specific patient populations. Standards of Medical Care in Diabetes(ADA). ?? Blood Blood / Unknown 08/10/2024 2 :10 PM EDT 08/10/2024 2:11 PM EDT us Irving Hand PharmD LAB - BLOOD DRAW Michael aaron - Final [facility] [address] [address], [facility] [address] [address] * (ABNORMAL) LIPID PANEL (08/10/2024 2:10 PM EDT) CHOLESTEROL, TOTAL 146 <200 mg/dL [facility] HDL CHOLESTEROL 44(L) > OR = 50 mg/dL [employer] TRIGLYCERIDES 121 <150 mg/dL [employer] LDL-CHOLESTEROL 80 99 mg/dL (calc) [employer] [employer] Comment: Reference range: <100 Desirable range <100 mg/dL for primary prevention; ?? <70 mg/dL for patients with CHD or diabetic patients with > or = 2 CHD risk factors. LDL-C is now calculated using the Kip-Aliya calculation, which is a validated novel method providing better accuracy than the Friedewald equation in the estimation of LDL-C. Kip LERMA et al. YVETTE. 2013;310(19): 2038-2398 (http://education.[address]/faq/LGC018) CHOL/HDLC RATIO 3.3 <5.0 (calc) [employer] NON-HDL CHOLESTEROL 102 <130 mg/dL (calc) [employer] Comment: For patients with diabetes plus 1 major ASCVD risk factor, treating to a non-HDL-C goal of <100 mg/dL (LDL-C of <70 mg/dL) is considered a therapeutic option. Blood Blood / Unknown 08/10/2024 2 :10 PM EDT 08/10/2024 2:11 PM EDT Irving Yazan PharmD LAB - BLOOD DRAW Final Re sult Performing Organization Address City/[facility]/ZIP Co de Phone Number [facility] [address] [address], [facility] [address] [address] * (ABNORMAL) GLUCOSE, BLOOD BY GLUCOSE MONITORING DEVICE (CLIA WAIVED)POCT (07/29/2024 9:25 AM EDT) GLUCOSE 182(A) 70 - 100 mg/dL [facility] OFFICE POCT Capillary Blood Blood / Unknown 9:25 AM EDT Irving [place]burg PharmD LAB - BLOOD DRAW Final Re sult Performing Organization Address [facility] Co de Phone Number [facility] POCT * EYE EXAM (07/01/2024 3:00 AM EDT) 07/01/2024 3:00 AM EDT Gen Trujillo MD OTHER Final Result * (ABNORMAL) COMPREHENSIVE METABOLIC PANEL (02/04/2024 1:26 PM EDT) GLUCOSE 180(H) 65 - 139 mg/dL [facility] Comment: ?Non-fasting reference interval UREA NITROGEN (BUN) 11 7 - 25 mg/dL [employer] CREATININE (blood) 0.97 0.50 - 1.05 mg/dL [employer] EGFR 64 > OR = 60 mL/min/1. 73m2 [employer] BUN/CREATININE RATIO SEE NOTE: [employer] Comment: ?? Not Reported: BUN and Creatinine are within ?? reference range. ? SODIUM 142 135 - 146 mmol/L [facility] POTASSIUM 3.8 3.5 - 5.3 mmol/L [facility] CHLORIDE 105 98 - 110 mmol/L [facility] CARBON DIOXIDE 28 20 - 32 mmol/L [facility] CALCIUM 9.6 8.6 - 10.4 mg/dL [facility] PROTEIN, TOTAL 6.6 6.1 - 8.1 g/dL [facility] ALBUMIN 4.2 3.6 - 5.1 g/dL [facility] GLOBULIN 2.4 1.9 - 3.7 g/dL (calc) [facility] ALBUMIN/GLOBULI N RATIO 1.8 1.0 - 2.5 (calc) [facility] BILIRUBIN, TOTAL 0.5 0.2 - 1.2 mg/dL [facility] ALKALINE PHOSPHATASE 112 37 - 153 U/L [facility] AST 14 10 - 35 U/L [facility] ALT 12 6 - 29 U/L [facility] Blood Blood / Unknown 02/04/2024 1 :26 PM EDT 02/04/2024 1:27 PM EDT Narrative [facility] [employer] - 02/05/2024 6:22 AM EDT FASTING:NO us Gen Trujillo MD LAB - BLOOD DRAW Final Resul t Performing Organization Address City/State/[facility] Co de Phone Number [facility] [address] [address], [facility] [address] [address] * HISTORIC MAMMOGRAM (07/30/2023 3:00 AM EDT) 07/30/2023 3:00 AM EDT us Gen Trujillo MD IMG MAMMO Edited Resul t - Final * DXA BONE DENSITY STUDY 1/> SITES AXIAL SKEL (07/30/2023 3:00 AM EDT) 07/30/2023 3:00 AM EDT us Gen Trujillo MD IMG DXA Final Result * ASSAY OF THYROID STIMULATING HORMONE TSH (05/09/2023 10:31 AM EST) TSH 0.79 0.40 - 4.50 mIU/L [facility] Blood Blood / Unknown 05/09/2023 1 0:31 AM EST 05/09/2023 10:31 AM EST Gen Trujillo MD LAB - BLOOD DRAW Edited Resu lt - Final [facility] [address] [address], [facility] [address] [address] * Hepatitis C Antibody (05/17/2020 3:39 PM EST) Pathologist [facility] [facility] [place] HEPATITIS C VIRUS SCREEN NEGATIVE NEGATIVE [facility] Blood Blood / Unknown 05/17/2020 3 :39 PM EST 05/17/2020 3:50 PM EST Narrative [facility] - 05/17/2020 7:05 PM EST [facility], [place] [address] Plastic Fabricator - Janel Ramos MD PT ID [id number] ORD# [id number] Gen Trujillo MD LAB - BLOOD DRAW Final Resul t Performing Organization Address City/[facility]/ZIP Co de Phone Number [address] [address], from Last 3 Months or Most Recently Relevant to Health Maintenance Insurance ID MEDICAID FORMERLY [facility] - DENTAL [employer] [place] [address] Care Teams Manifold Operator Relationship Specialty Start Date End Date Gen Trujillo MD [address] [place] [address] PCP - General Internal Medicine 05/02/20
[2024-09-28 18:30] LABS: Anion Gap 10 (12-20); Blood Urea Nitrogen 15 mg/dL (9-16); Calcium 9.9 mg/dL (8.4-10.2); Carbon Dioxide 26 mmol/L (22-29); Chloride 110 mmol/L (96-108); Estimated Glomerular Filt Rate 60; Glucose Random 81 mg/dL (60-115); Potassium 4.1 mmol/L (3.3-5.1); Sodium 142 mmol/L (135-145)
[2024-09-28 18:33] LABS: Creatinine Urine 160.29 mg/dL; Total Protein Urine Random 47 mg/dL (<12)
== END 2024-09-28 14:22 | disposition home or self-care (01) ==
LOC: HO.HKASLDS 14:21
PROVIDERS: Visit Provider Internal Medicine Hypertension Specialist
DX: N18.9 Chronic kidney disease, unspecified (principal)
CPT/HCPCS: 36415; 80048; 82570; 84156

== ENCOUNTER 2024-09-29 09:27 | Outpatient (AMB) | payer MEDICARE, MEDICAID, SELFPAY ==
[2024-09-29 09:29] VITALS: BP 124/82; PULSE 85; O2SAT 97; BMI 24.0
--- NOTE | 2024-09-29 09:29 | HO.NEPHOV_ITS ---
Vital Signs 09/29/24 09:29 Height 5 ft 4 in Weight 140 lb BMI 24.0 BP 124/82 Blood Pressure Location Lt brachial Position Sitting Pulse 85 Pulse Source Pulse Oximeter Pulse Oximetry (%) 97 Oxygen Delivery Method Room Air Intake Visit Reasons: 6 mo follow up/ Conf Magento Web Developer Required: No Accompanied by: Self / Same As Patient Allergies lisinopril Allergy (Verified 09/29/24 09:31) Cough ondansetron [From Zofran] Allergy (Verified 09/29/24 09:31) Hives simvastatin Allergy (Verified 09/29/24 09:31) Muscle Pain statins Allergy (Uncoded 05/07/23 15:09) Muscle Pain Medication List - Last Reconciled 09/29/24 by Driss Gr MD aspirin 81 mg PO DAILY cetirizine (Zyrtec) 10 mg PO DAILY PRN cholecalciferol (vitamin D3) 25 mcg PO DAILY empagliflozin (Jardiance) 25 mg PO DAILY insulin aspart U-100 (Novolog U-100 Insulin aspart) subcut DAILY insulin pump cart,10 units/day (Omnipod Go Pods 10 units/day subcutaneous cartridge) As directed insulin pump cart,auto,BT,G6/7 (Omnipod 5 G6-G7 Pods (Gen 5) subcutaneous cartridge) As directed levothyroxine 200 mcg PO DAILY metoprolol succinate ER 100 mg PO BID rosuvastatin 40 mg PO DAILY sacubitril-valsartan 97-103 mg (Entresto) 1 tab PO BID sertraline 50 mg PO DAILY spironolactone 25 mg PO DAILY tirzepatide (Mounjaro) mg subcut QWEEK HPI Comments Details: Nancy is a pleasant 67-year-old woman with a history of chronic disease in a setting of coronary disease status post stent placement history of cardiac arres t status post defibrillator and hypertension. She is here for her usual follow-up. She is on both Entresto and Aldactone. She had an episode of hyperkalemia in the past during which time these medications were held. There been restarted after renal function returned to baseline. She has no shortness of breath No significant edema. No urinary symptoms. Appetite is fair 10/15/2023. Overall she is doing well. She is lost few lb. 03/31/24 Neck pain s/p Prednisone. No NSAIDS 09/29/24 69-year-old female presenting with chronic kidney disease for routine follow-up. Her recent blood tests, conducted at this facility, reveal significant improvement in her kidney function. The patient reports her diabetes and hypertension are well controlled, with a recent A1c indicating good management. She remains compliant with her medication regimen, including nephrology-specific medications and those for her cardiac conditions. 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 The patient is symptom- free regarding her renal conditions, adheres to dietary restrictions, and maintains physical activity. There are no recent exacerbations or new symptoms reported. [facility] Family History Son Hypertrophic cardiomyopathy Daughter Hypertrophic cardiomyopathy Son Hypertrophic cardiomyopathy Social History Alcohol intake: current Patient Tobacco Use Status: Former Tobacco user Physical Exam Vital Signs: Last Vital Signs Pulse 85 09/29/24 09:29 BP 124/82 09/29/24 09:29 Pulse Ox 97 09/29/24 09:29 Oxygen Delivery Method Room Air 09/29/24 09:29 BMI result Body Mass Index 24.0 Comfortable Neck supple no JVD. Lungs entry equal no rales. Heart S1-S2 heard no gallop or rub. Abdomen soft nontender. Neuro alert awake oriented. No asterixis. Extremities no edema. Results Reviewed Nephrology Results: Hgb 12.1 g/dl (12.0-16.0) 10/15/23 WBC 8.4 X10*3/uL (4.8-10.8) 10/15/23 Plt Count 247 X10*3/uL (160-400) 10/15/23 Sodium 142 mmol/L (135-145) 09/28/24 Potassium 4.1 mmol/L (3.3-5.1) 09/28/24 Chloride 110 mmol/L (96-108) H 09/28/24 Carbon Dioxide 26 mmol/L (22-29) 09/28/24 BUN 15 mg/dL (9-16) 09/28/24 Creatinine 0.93 mg/dL (0.5-1.4) 09/28/24 Calcium 9.9 mg/dL (8.4-10.2) 09/28/24 Urine Creatinine 160.29 mg/dL 09/28/24 Assessment & Plan Assessment & Plan (1) CHF (congestive heart failure): Code(s): I50.9 - Heart failure, unspecified Category: Medical (2) Hypothyroid: Code(s): E03.9 - Hypothyroidism, unspecified Category: Medical (3) Diabetes mellitus with chronic kidney disease: Code(s): E11.22 - Type 2 diabetes mellitus with diabetic chronic kidney disease Category: Medical (4) CKD (chronic kidney disease): Code(s): N18.9 - Chronic kidney disease, unspecified Category: Medical Plan Middle-aged woman with a history of stage 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 She has had episodes of acute kidney injury which seems to resolve. Renal function is back to baseline. Goal is to slow the progression of disease. Continue to avoid nephrotoxic agents. Will continue to monitor renal function closely. History of hyperkalemia in the past. She is on both Entresto and spironolactone. Discussed low-potassium diet Follow serum electrolytes. History of congestive heart failure She appears well compensated Needs to stay on low-sodium diet Follow-up with Cardiology. History of hypothyroidism. She is on Synthroid ;s/p Thyroid US recently Recent TSH was 7.44 on 03/29 - follow up with PCP/Endocrine History of anemia. Hemoglobin has improved Thus far there is no indication for Epogen. Orders: Orders Basic Metabolic Panel 6 Months I50.9 - Heart failure, unspecified, N18.9 - Chronic kidney disease, unspecified Complete Blood Count no Diff Today I50.9 - Heart failure, unspecified, N18.9 - Chronic kidney disease, unspecified Coding Level of Care Code Est Pt Level 4 (00324) Diagnoses CHF (congestive heart failure) I50.9 Hypothyroid E03.9 Diabetes mellitus with chronic kidney disease E11.22 CKD (chronic kidney disease) N18.9
--- OUTSIDE RECORDS SUMMARY | 2024-09-29 10:19 | XMS_ITS | Clinical Summary ---
Author Organization [facility] Address [address] [place] [address] Care Team Providers Care Mule Packer Name Role Phone Gen Trujillo MD Primary Care Provider [phone] Source Comments PLEASE NOTE, if this patient [...] polyneuropathy, with long-term current use of insulin ([facility]) Apply 1 sensor to back of upper arm every 10 days. Use to check glucose at least 3 times daily. (Dexcom G7 sensors) 9 Each 3 03/05/20 24 Active pregabalin (LYRICA) 75 mg capsule 02/19/20 24 Active metoprolol succinate XL (TOPROL-XL) 100 mg 24 hr tabletIndications: Hypertrophic cardiomyopathy ([facility]),ICD (implantable cardioverter-defib rillator) in place,Essential hypertension Take 1 Tablet by mouth every morning For blood pressure. 90 Tablet 3 04/22/19 25 Active sacubitriL-valsart an (ENTRESTO) 97-103 mg tabIndications:Hyp ertrophic cardiomyopathy ([facility]),ICD (implantable cardioverter-defib rillator) in place,Essential hypertension Take 1 Tablet by mouth 2 (two) times daily 180 Tablet 3 04/22/19 25 Active spironolactone (ALDACTONE) 25 mg tabletIndications: Hypertrophic cardiomyopathy ([facility]),ICD (implantable cardioverter-defib rillator) in place,Essential hypertension Take 1 Tablet by mouth every morning For blood pressure. 90 Tablet 3 04/22/19 25 Active rosuvastatin (CRESTOR) 40 mg tabletIndications: Type 2 diabetes mellitus with diabetic polyneuropathy, with long-term current use of insulin ([facility]),Hypertro phic cardiomyopathy ([facility]),Essentia l hypertension Take 1 Tablet by mouth nightly at bedtime For cholesterol 90 Tablet 3 04/22/19 25 Active tirzepatide (MOUNJARO) 7.5 mg/0.5 mL pnijIndications:Ty pe 2 diabetes mellitus with diabetic polyneuropathy, with long-term current use of insulin ([facility]) Inject 7.5 mg into the skin once [...] polyneuropathy, with long-term current use of insulin ([facility]) Use to test blood glucose once daily (OneTouch Verio Test Strips) 100 Each 3 07/30/19 25 Active alcohol swabsIndications:T ype 2 diabetes mellitus with diabetic polyneuropathy, with long-term current use of insulin ([facility]) Use to test blood glucose once daily. 100 Each 07/30/19 25 Active lancets (ONETOUCH DELICA PLUS LANCET) 33 gaugeIndications:T ype 2 diabetes mellitus with diabetic polyneuropathy, with long-term current use of insulin ([facility]) Use to test blood glucose once daily (OneTouch Delica 33G Lancets) 100 Each 3 07/30/19 25 Active empagliflozin (JARDIANCE) 25 mg tabIndications:Typ e 2 diabetes mellitus with diabetic polyneuropathy, with long-term current use of insulin ([facility]),Stage 3a chronic kidney disease ([facility]) Take 1 Tablet by mouth every morning (Take with plenty of water throughout the day) 30 Tablet 5 07/30/19 25 Active MISCELLANEOUS MEDICAL SUPPLY MISC Cane. Dx right knee osteoarthritis. Length of need 99 months 1 Each 1 08/14/19 Active Active Problems Problem Noted Date Diagnosed Date Non compliance w medication regimen 10/30/2023 Depression with anxiety 06/02/2020 Stage 3a chronic kidney disease ([facility]) 2020 Overview (04/22/2024): 10/15/23 - [facility] [place]. Guru Naqvi Goal is to [...] Hyperlipidemia LDL goal <70 05/05/2020 Hypertrophic cardiomyopathy ([facility]) 05/05/2020 Overview (12/11/2023): Entresto 97/103 mg twice daily Metoprolol succinate ER 100 mg daily Spironolactone 25 mg daily Reduced EF 35% in 2019, now recovered. Hx cardiopulmonary arrest followed by ROSC & hypothermia protocol in 2011. [address] Follows with [facility]. ALEX on CPAP 05/05/2020 Type 2 diabetes mellitus wit h diabetic polyneuropathy, with long-term current use of insulin ([facility]) 05/05/2020 Overview (07/29/2024): DM dx: ~1997 per [...] schedule appt Diabetes retinal exam: 07/01/24 at [facility] Bilateral pinguecula - condition is stable Bilateral nuclear sclerotic cataract - condition is stable Cortical cataract - condition is worse (R/L) No DENTAL APPLIANCE FIXER/HTN retinopathy, no macular edema Hyperopia, astigmatism, presbyopia 05/05/23 at [facility] Bilateral: pinguecula, epiphora: using clear eyes, bilateral:cortical cataract, nuclear sclerotic cataract, condition is worse Bilateral C/D R>L, left eye: Mild DENTAL APPLIANCE FIXER (ST) improved from No macular edema. No HTN retinopathy. Hyperopia, astigmatism. Presbyopia. 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 with channel marketing program manager Gastroesophageal reflux disease without esophagi tis 05/05/2020 Adhesive capsulitis of left shoulder 05/05/2020 Primary osteoarthritis involving multiple joints 05/05/2020 Refusal of blood transfusion s as patient is Hindu Resolved Problems Problem Noted Date Diagnosed Date [...] Description 09/09/2024 2:20 PM EDT Office Visit [address] [phone] Nasima Ko RN Diabetic feet (HCC-CMS) (Primary Dx) 08/11/2024 3:00 PM EDT Office Visit [address] [phone] Gen Trujillo MD Type 2 diabetes mellitus with diabetic polyneuropathy, with long-term current use of insulin ([facility]) (Primary Dx); Hypertrophic cardiomyopathy (HCC-CMS); Essential hypertension; Cervical radiculopathy; Hypercholesterolemia; Stage 3a chronic kidney disease (HCC-CMS); Diabetic polyneuropathy associated with type 2 diabetes mellitus (HCC-CMS); Primary osteoarthritis involving multiple joints 08/11/2024 Results [facility] [address] [place] [address] Irving Hand PharmD GLUCOSE, BLOOD BY GLUCOSE MONITORING DEVICE (CLIA WAIVED)POCT, HEMOGLOBIN GLYCOSYLATED A1C, VITAMIN B12 & FOLATE, Additional followed-up results: 2 07/29/2024 9:00 AM EDT Office Visit [address] [phone] Irving Hand PharmD Type 2 diabetes mellitus with diabetic polyneuropathy, with long-term current use of insulin ([facility]) (Primary Dx); Hypertrophic cardiomyopathy (HCC-CMS); ICD (implantable [...] Description 10/06/2024 2:00 PM EDT Office Visit [address] [phone] Patricia Harvey MD [address] [place] [address] 10/28/2024 2:00 PM EDT Office Visit [address] [phone] Irving Hand, PharmD [facility] [place] [address] Health Maintenance Due Date Last Done Comments Dental Prophy 1955 Medicare Annual Wellness Visit 07/27/1973 CT Colonography 07/27/2000 FIT/gFOBT 07/27/2000 Fecal DNA 07/27/2000 Flexible Sigmoidoscopy 07/27/2000 Dental BW 11/14/2023 11/11/2022 Dental Examination 11/14/2023 11/11/2022, 03/08/2020 Dental Perio Charting 11/14/2023 11/11/2022 [id number] ( season) 2023 03/23/2021, 07/22/2020, 07/15/2020, Additional [...] polyneuropathy, with long-term current use of insulin ([facility]) Hyperlipidemia LDL goal <70 MICROALBUMIN/CREATINI NE RATIO, URINE, RANDOM Routine 08/10/2024 2:10 PM EDT Type 2 diabetes mellitus with diabetic polyneuropathy, with long-term current use of insulin ([facility]) VITAMIN B12 & FOLATE Routine 08/10/2024 2:10 PM EDT Type 2 diabetes mellitus with diabetic polyneuropathy, with long-term current use of insulin ([facility]) HEMOGLOBIN GLYCOSYLATED A1C Routine 08/10/2024 2:10 PM EDT Type 2 diabetes mellitus with diabetic polyneuropathy, with long-term current use of insulin ([facility]) GLUCOSE, BLOOD BY GLUCOSE MONITORING DEVICE (CLIA WAIVED)POCT Routine 07/29/2024 9:25 AM EDT Type 2 diabetes mellitus with diabetic polyneuropathy, with long-term current use of insulin ([facility]) EYE EXAM 07/01/2024 3:00 AM EDT COMPREHENSIVE METABOLIC PANEL Routine 02/04/2024 1:26 PM EDT Type 2 diabetes mellitus with diabetic polyneuropathy, with long-term current use of insulin ([facility]) DXA BONE DENSITY STUDY 1/> SITES AXIAL [...] polyneuropathy, with long-term current use of insulin ([facility]) from Last 3 Months or Most Recently Relevant to Health Maintenance Results * (ABNORMAL) MICROALBUMIN/CREATININE RATIO, URINE, RANDOM (08/10/2024 2:10 PM EDT) Pathologist [facility] CREATININE, RANDOM URINE 245 20 - 275 mg/dL [facility] MICROALBUMIN 24.9 mg/dL [facility] Comment: Reference Range Not established MICROALBUMIN/CREA TININE RATIO, RANDOM URINE 102(H) <30 mg/g creat [facility] Comment: The ADA defines abnormalities in albumin [...] PharmD LAB URINE AMBULATORY Bettie l Result [employer] [address] [address], [facility] [address] [place] [address] * VITAMIN B12 & FOLATE (08/10/2024 2:10 PM EDT) [facility] VITAMIN B12 272 200 - 1,100 pg/mL [employer] Comment: Please Note: Although the reference range for vitamin B12 is 200-1100 pg/mL, it has been reported that between 5 and 10% of patients with values between 200 and 400 pg/mL may experience neuropsychiatric and hematologic abnormalities due to occult B12 deficiency; less than 1% of patients with values above 400 pg/mL will have symptoms. FOLATE, SERUM 6.1 5.5 ng/mL [employer] [facility] Comment: ? Reference Range ? Low: ? <3.4 ? Borderline: ?3.4-5.4 ? Normal: ?>5.4 Blood Blood / Unknown 08/10/2024 2 :10 PM EDT 08/10/2024 2:11 PM EDT Irving Hand PharmD LAB - BLOOD DRAW Edited R esult - Final [employer] [address] [address], [place] [facility] [address] [place] [address] * HEMOGLOBIN GLYCOSYLATED A1C (08/10/2024 2:10 PM EDT) [facility] HEMOGLOBIN A1C 5.6 <5.7 % [employer] [facility] Comment: For the purpose of screening for the presence of diabetes: <5.7% ? Consistent with the absence of diabetes 5.7-6.4% ?Consistent with increased risk for diabetes ?(prediabetes) > or =6.5% ??Consistent with diabetes This assay result is consistent with a decreased risk of diabetes. Currently, no consensus exists regarding use of hemoglobin A1c for diagnosis of diabetes in children. According to [place] Diabetes Association (ADA) guidelines, hemoglobin A1c <7.0% represents optimal control in non- diabetic patients. Different metrics may apply to specific patient populations. Standards of Medical Care in Diabetes(ADA). ?? Blood Blood / Unknown 08/10/2024 2 :10 PM EDT 08/10/2024 2:11 PM EDT us Irving Hand PharmD LAB - BLOOD DRAW Michael aaron - Final [employer] [address] [address], [employer] [address] [address] * (ABNORMAL) LIPID PANEL (08/10/2024 2:10 PM EDT) CHOLESTEROL, TOTAL 146 <200 mg/dL [facility] HDL CHOLESTEROL 44(L) > OR = 50 mg/dL [employer] TRIGLYCERIDES 121 <150 mg/dL [facility] LDL-CHOLESTEROL 80 99 mg/dL (calc) [facility] Comment: Reference range: <100 Desirable range <100 mg/dL for primary prevention; ?? <70 mg/dL for patients with CHD or diabetic patients with > or = 2 CHD risk factors. LDL-C is now calculated using the Kip-Aliya calculation, which is a validated novel method providing better accuracy than the Friedewald equation in the estimation of LDL-C. Kip LERMA et al. YVETTE. 2013;310(19): 9991-6801 (http://education.Nature's Therapy/faq/ZGH159) CHOL/HDLC RATIO 3.3 <5.0 (calc) [facility] NON-HDL CHOLESTEROL 102 <130 mg/dL (calc) [facility] Comment: For patients with diabetes plus 1 major ASCVD risk factor, treating to a non-HDL-C goal of <100 mg/dL (LDL-C of <70 mg/dL) is considered a therapeutic option. Blood Blood / Unknown 08/10/2024 2 :10 PM EDT 08/10/2024 2:11 PM EDT Irving Yazan PharmD LAB - BLOOD DRAW Final Re sult Performing Organization Address City/[facility]/ZIP Co de Phone Number [employer] [address] [address], [employer] [address] [address] * (ABNORMAL) GLUCOSE, BLOOD BY GLUCOSE MONITORING DEVICE (CLIA WAIVED)POCT (07/29/2024 9:25 AM EDT) GLUCOSE 182(A) 70 - 100 mg/dL [facility] OFF[facility] POCT Capillary Blood Blood / Unknown 9:25 AM EDT Irving Cibolo PharmD LAB - BLOOD DRAW Final Re sult Performing Organization Address [facility] Co de Phone Number [facility] POCT * EYE EXAM (07/01/2024 3:00 AM EDT) 07/01/2024 3:00 AM EDT Gen Trujillo MD OTHER Final Result * (ABNORMAL) COMPREHENSIVE METABOLIC PANEL (02/04/2024 1:26 PM EDT) GLUCOSE 180(H) 65 - 139 mg/dL [facility] Comment: ?Non-fasting reference interval UREA NITROGEN (BUN) 11 7 - 25 mg/dL [facility] CREATININE (blood) 0.97 0.50 - 1.05 mg/dL [facility] EGFR 64 > OR = 60 mL/min/1. 73m2 [facility] BUN/CREATININE RATIO SEE NOTE: [facility] Comment: ?? Not Reported: BUN and Creatinine are within ?? reference range. ? SODIUM 142 135 - 146 mmol/L [facility] POTASSIUM 3.8 3.5 - 5.3 mmol/L [facility] CHLORIDE 105 98 - 110 mmol/L [facility] CARBON DIOXIDE 28 20 - 32 mmol/L [facility] CALCIUM 9.6 8.6 - 10.4 mg/dL [facility] PROTEIN, TOTAL 6.6 6.1 - 8.1 g/dL [facility] ALBUMIN 4.2 3.6 - 5.1 g/dL [facility] GLOBULIN 2.4 1.9 - 3.7 g/dL (calc) [facility] ALBUMIN/GLOBULI N RATIO 1.8 1.0 - 2.5 (calc) [facility] BILIRUBIN, TOTAL 0.5 0.2 - 1.2 mg/dL [facility] ALKALINE PHOSPHATASE 112 37 - 153 U/L [facility] AST 14 10 - 35 U/L [facility] ALT 12 6 - 29 U/L [facility] Blood Blood / Unknown 02/04/2024 1 :26 PM EDT 02/04/2024 1:27 PM EDT Narrative [employer] [facility] - 02/05/2024 6:22 AM EDT FASTING:NO us Gen Trujillo MD LAB - BLOOD DRAW Final Resul t Performing Organization Address City/State/[facility] Co de Phone Number [employer] [address] [address], [employer] [address] [address] * HISTORIC MAMMOGRAM (07/30/2023 3:00 AM EDT) [...] EST) TSH 0.79 0.40 - 4.50 mIU/L [facility] Blood Blood / Unknown 05/09/2023 1 0:31 AM EST 05/09/2023 10:31 AM EST Gen Trujillo MD LAB - BLOOD DRAW Edited Resu lt - Final [employer] [address] [address], [employer] [address] [address] * Hepatitis C Antibody (05/17/2020 3:39 PM EST) Pathologist [facility] HEPATITIS C VIRUS SCREEN NEGATIVE NEGATIVE [facility] Blood Blood / Unknown 05/17/2020 3 :39 PM EST 05/17/2020 3:50 PM EST Narrative [facility] - 05/17/2020 7:05 PM EST [facility], [place] [address] Molding Manager - Janel Ramos MD PT ID [id number] ORD# [id number] Gen Trujillo MD LAB - BLOOD DRAW Final Resul t Performing Organization Address City/[facility]/ZIP Co de Phone Number [address] [address], from Last 3 Months or Most Recently Relevant to Health Maintenance [place] [facility] - DENTAL HUMANA GOLD CHOICE MEDICARE Care Teams Mule Packer Relationship Specialty Start Date End Date Gen Trujillo MD [address] [place] [address] PCP - General Internal Medicine 05/02/20
== END 2024-09-29 09:43 | disposition home or self-care (01) ==
LOC: HO.HKAS 09:28
PROVIDERS: PCP Internal Medicine; Visit Provider Internal Medicine Hypertension Specialist
DX: I50.9 Heart failure, unspecified (principal); E03.9 Hypothyroidism, unspecified; E11.22 Type 2 diabetes mellitus with diabetic chronic kidney disease; N18.9 Chronic kidney disease, unspecified
CPT/HCPCS: 99214

== ENCOUNTER → 2024-09-29 09:27 | Outpatient (BNVA) | payer MEDICARE, MEDICAID, SELFPAY | PROVIDERS: PCP Internal Medicine; Visit Provider Internal Medicine Hypertension Specialist | DX: E11.22 Type 2 diabetes mellitus with diabetic chronic kidney disease (principal); I50.9 Heart failure, unspecified; N18.9 Chronic kidney disease, unspecified; E03.9 Hypothyroidism, unspecified | CPT/HCPCS: 99212 ==

== ENCOUNTER 2025-04-06 09:36 | Outpatient (AMB) | payer OTHER, MEDICAID, SELFPAY ==
[2025-04-06 09:42] VITALS: BP 140/78; PULSE 103; O2SAT 98; BMI 22.7
--- NOTE | 2025-04-06 09:42 | HO.NEPHOV_ITS ---
Vital Signs 04/06/25 09:42 04/06/25 09:52 Height 5 ft 4 in Weight 132 lb BMI 22.7 BP 140/78 H 120/70 Blood Pressure Location Lt brachial Lt brachial Position Sitting Sitting Pulse 103 H Pulse Source Pulse Oximeter Pulse Oximetry (%) 98 Oxygen Delivery Method Room Air Intake Visit Reasons: 6 mo follow up Application Security Specialist Required: No Accompanied by: Self / Same As Patient Allergies lisinopril Allergy (Verified 04/06/25 09:44) Cough ondansetron (From Zofran) Allergy (Verified 04/06/25 09:44) Hives simvastatin Allergy (Verified 04/06/25 09:44) Muscle Pain statins Allergy (Uncoded 05/07/23 15:09) Muscle Pain Medication List - Last Reconciled 04/06/25 by Driss Gr MD aspirin 81 mg PO DAILY cetirizine (Zyrtec) 10 mg PO DAILY PRN cholecalciferol (vitamin D3) 25 mcg PO DAILY empagliflozin (Jardiance) 25 mg PO DAILY insulin aspart U-100 (Novolog U-100 Insulin aspart) subcut DAILY insulin pump cart,10 units/day (Omnipod Go Pods 10 units/day subcutaneous cartridge) As directed insulin pump cart,auto,BT,G6/7 (Omnipod 5 G6-G7 Pods (Gen 5) subcutaneous cartridge) As directed levothyroxine 200 mcg PO DAILY metoprolol succinate ER 100 mg PO BID rosuvastatin 40 mg PO DAILY sacubitril-valsartan 97-103 mg (Entresto) 1 tab PO BID sertraline 50 mg PO DAILY spironolactone 25 mg PO DAILY tirzepatide (Mounjaro) mg subcut QWEEK HPI Comments Details: History of Present Illness The patient is a 69-year-old female presenting for a 6-month follow-up visit for management of her chronic kidney condition. Recent blood work showed stable kidney function and a normal potassium level. Her urine protein level is very low and stable at 14. The patient's last HbA1c was 5.5, indicating good glycemic control. She reports her breathing is good. Results - Labs: Kidney function tests are stable and potassium is normal. - Labs: HbA1c was 5.5. - Urinalysis: Urine protein was 14, which is considered very low and stable. [facility] Family History Son Hypertrophic cardiomyopathy Daughter Hypertrophic cardiomyopathy Son Hypertrophic cardiomyopathy Social History Alcohol intake: current Patient Tobacco Use Status: Former Tobacco user Physical Exam Exam Exam: Physical Exam General: Awake. Comfortable. HENT: Neck supple. Mucosa moist. Pulmonary: Lungs aeration equal. No rales. Cardiology: Heart S1-S2 heard. No gallop. Abdomen: Soft. Non tender. Bowel sounds normal. Neurologic: No involuntary movements. No myoclonus. Extremities: No edema. No rash. Vital Signs: Last Vital Signs Pulse 103 H 04/06/25 09:42 BP 120/70 04/06/25 09:52 Pulse Ox 98 04/06/25 09:42 Oxygen Delivery Method Room Air 04/06/25 09:42 BMI result Body Mass Index 22.7 Results Reviewed Nephrology Results: Hgb, (12.0-16.0) 12.1 g/dl 10/15/23 WBC, (4.8-10.8) 8.4 X10*3/uL 10/15/23 Plt Count, (160-400) 247 X10*3/uL 10/15/23 Sodium, (135-145) 142 mmol/L 09/28/24 Potassium, (3.3-5.1) 4.1 mmol/L 09/28/24 Chloride, (96-108) 110 mmol/L H 09/28/24 Carbon Dioxide, (22-29) 26 mmol/L 09/28/24 BUN, (9-16) 15 mg/dL 09/28/24 Creatinine, (0.5-1.4) 0.93 mg/dL 09/28/24 Calcium, (8.4-10.2) 9.9 mg/dL 09/28/24 Urine Creatinine 160.29 mg/dL 09/28/24 Assessment & Plan Assessment & Plan (1) CKD (chronic kidney disease): Code(s): N18.9 - Chronic kidney disease, unspecified Category: Medical (2) CHF (congestive heart failure): Code(s): I50.9 - Heart failure, unspecified Category: Medical (3) Hypothyroid: Code(s): E03.9 - Hypothyroidism, unspecified Category: Medical (4) Diabetes mellitus with chronic kidney disease: Code(s): E11. - Type 2 diabetes mellitus with diabetic chronic kidney disease Category: Medical Plan Plan 1. Chronic Kidney Disease, Stable - The patient's kidney numbers are stable and looking good. - The follow-up interval will be extended from 6 months to 9 months due to her stability. - Repeat kidney function tests and a urine protein check will be performed before her next visit. 2. Hypertension - The patient's blood pressure is well-controlled, with a reading of 120/70 mmHg in the office. - She was advised to continue to manage her blood pressure, eat less salt, and stay active. 3. Proteinuria, Stable - The patient's urine protein is very low and stable at a level of 14. - Monitoring will continue, with a repeat urine protein test scheduled before the next 9-month follow-up appointment. 4. Diabetes Mellitus - The patient has excellent glycemic control, with a recent HbA1c of 5.5. - She was advised to continue her efforts to keep her blood sugar levels low. History of congestive heart failure She appears well compensated Needs to stay on low-sodium diet Follow-up with Cardiology. History of hypothyroidism. She is on Synthroid ;s/p Thyroid US recently Recent TSH was 7.44 on 03/29 - follow up with PCP/Endocrine History of anemia. Hemoglobin has improved Thus far there is no indication for Epogen. ? Orders: Orders Basic Metabolic Panel 9 Months - Type 2 diabetes mellitus with diabetic chronic kidney disease, N18.9 - Chronic kidney disease, unspecified Creatinine Urine 9 Months . - Type 2 diabetes mellitus with diabetic chronic kidney disease, N18.9 - Chronic kidney disease, unspecified UA and rflx microscopic 9 Months . - Type 2 diabetes mellitus with diabetic chronic kidney disease, N18.9 - Chronic kidney disease, unspecified Total Protein Urine Random 9 Months . - Type 2 diabetes mellitus with diabetic chronic kidney disease, N18.9 - Chronic kidney disease, unspecified Coding Level of Care Code Est Pt Level 4 (59663) Diagnoses CKD (chronic kidney disease) N18.9 CHF (congestive heart failure) I50.9 Hypothyroid E03.9 Diabetes mellitus with chronic kidney disease
[2025-04-06 09:52] VITALS: BP 120/70
--- OUTSIDE RECORDS SUMMARY | 2025-04-06 11:06 | XMS_ITS | Continuity of Care Document ---
Author Name inst[facility], Medical Address [address] [place] [id number] Organization Unknown Address [address] [place] [id number] Medications No known medications Problems No known problems
--- OUTSIDE RECORDS SUMMARY | 2025-04-06 11:06 | XMS_ITS | Encounter Summary ---
Author Organization [facility] Address [address] [place] [address] Encounters * CPT with Medical [facility] at [employer] on 2025-03-03 { reasonForRequest : right knee pain , patientReports : Weaknesswith fall, able to move all extremities , denies :[ Falls with head strike and LOC , Falls from a standing position, no LOC, patient is amnestic to the event , Falls with isolated injury and deformity noted to limb , Falls with inability to move post fall , Cool extremities after fall or injury ], chiefComplaints : Extremity Pain , pmh : Chronic Kidney Disease, Cancer, Sleep Apnea, Hypertension, Diabetes Mellitus Type 2 , allergies : Skuspuz-LVV-NdY Reductase Inhibitors, [place] nopril , otherAllergies :null, painAssessment : , visitOutc ome : , additionalComments : 69 y.o female complains of Extremity Pain\nPatient self referring\nPatient fell last Friday. Her left knee buckled and she was walking downstairs and fell. \nPatient started complaining of right knee pain right on the knee cap. denies any bruising, redness, warmth. endorses swelling last night. pain 10/10 when ambulating. and describes as sharp pain. denies any unusual exercise or repetitive motion. \nPatient has not taken anything forthe pain. Resting her right leg she's not feeling any pain. When she puts pressure on it is when ithurts. \nhas chronic kidney issues and is not currently on any blood thinners. \nPatient aware we do not have Xray capability and requesting [facility] visit. \n\nI provided information on the mobile health provider response time and advised the patient and/or caregiver to monitor reported signs and sym ptoms. I discussed the warning signs of when to seek emergency care. } [facility] makes pt contact a 69 yo F CC of R knee pain after suffering a fall last friday. [facility] obtains consent and uploads electronically. [facility] obtains vital signs. PT explains last friday while walking down some stairs as she approached the last step her left knee gave out causing her to fall and injure her right knee. Afterwards pt explains she was fine and didnt believe she injured herself for the days after she began having pain along the quadricep, and yesterday while walking normally she felt sharpness in her right knee just left of the patella. She describes the pain as sharp when bearing weight but only a tightness at rest. PT has full ROM, no swelling is noted although pt noted swelling last night that has subsided today. PT gaits exhibits pain from the right knee. PT is not on blood thinners and had no head strikes or syncope. PT experiencing no other symptoms. PT has CKD and has not taken anything for pain. PT allergies are lisinopril and statins. [facility] contacts [facility] and explains above mentioned. [facility] orders 500mg x2 of tylenol and advises pt to take it everyday 4 to 6 hours bot not exceeding 4000mg a day. PT is advised that she that if she continues to have pain and symptoms dont reside that she should be seen in either an urgent care or an ed for imaging and possibly an MRI to see the extent of the injury. PT explains she will make it to an urgent care. red flags such as numbness, tingling, chest pain, sob, fever, or worsening symptoms she should utilize a se rvice such as 911. PT understands. [facility] clear. IV_(FLUIDS_AND/OR_MEDICATION), MEDICATION_IM, ORAL_MEDICATION, WOUND_CARE, ORTHOSTATIC_VITAL_SIGNS Written by Medical [facility] on 2025-03-03
--- OUTSIDE RECORDS SUMMARY | 2025-04-06 11:06 | XMS_ITS | Clinical Summary ---
Author Organization [facility] ity Address [address] [place] [address] Care Team Providers Care Auto Travel Counselor Name Role Phone Unavailable Primary Care Provider Unavailabl e Social History Tobacco Use Types Packs/Day Years Used Date Smoking Tobacco: Never Assessed Comments Unknown Sex and Gender Information Value Date Recorded Sex Assigned at Not on file Legal Sex Female 7:02 PM EST Gender Identity Not on file Sexual Orientation Not on file Plan of Treatment Health Maintenance Due Date Last Done Comments Breast Cancer Screening 1955 Colorectal Cancer Screening: Colonoscopy 1955 DTaP,Tdap,and Td Vaccines (1 - Tdap) 07/27/1974 Pneumococcal Vaccine: 50+ Ye ars (1 of 1 - PCV) 07/27/2005 Zoster Vaccines (1 of 2) 07/27/2005 Falls Risk Assessment 01/28/2024 Hepatitis C Screening 01/28/2024 Osteoporosis Screening (Bone Density Screening) 01/28/2024 Social Influencers of Health Screening 01/28/2024 Depression Screening 04/21/2024 COVID-19 Vaccine (1 - 2024-2 6 season) 2024 Influenza Vaccine (#1) 2024 RSV Immunization Adult Patie nts (1 - 1-dose 75+ series) 07/27/2030 HIB Vaccines Aged Out No longer eligi ble based on patient's age to complete this topic HPV Vaccines Aged Out No longer eligi ble based on patient's age to complete this topic Hepatitis A Vaccines Aged Out No long er eligible based on patient's age to complete this topic Hepatitis B Vaccines Aged Out No long er eligible based on patient's age to complete this topic IPV Vaccines Aged Out No longer eligi ble based on patient's age to complete this topic MMR Vaccines Aged Out No longer eligi ble based on patient's age to complete this topic Meningococcal ACWY Vaccine Aged Out N o longer eligible based on patient's age to complete this topic Meningococcal B Vaccine Aged Out No l onger eligible based on patient's age to complete this topic RSV Immunization Patients Un meera 20 months Aged Out No longer eligible b ased on patient's age to complete this topic Varicella Vaccines Aged Out No longer eligible based on patient's age to complete this topic
--- OUTSIDE RECORDS SUMMARY | 2025-04-06 11:06 | XMS_ITS | Clinical Summary ---
Author Organization [facility] Address [address] [place] [id number] Phone Care Team Providers Care Sales Recruiting Coordinator Name Role Phone Pcp, Unknown Primary Care Provider Unavailabl e Social History Tobacco Use Types Packs/Day Years Used Date Smoking Tobacco: Never Assessed Education Answer Date Recorded Are you interested in more education? Not on nick e 10/03/2023 Are you concerned about learning? Not on file 10/03/2023 No 10/03/2023 No 10/03/2023 Digital Access Answer Date Recorded No 10/03/2023 No 10/03/2023 Reliable internet access at home? Not on file 10/03/2023 Device with a working camera? Not on file Comments Unknown Sex and Gender Information Value Date Recorded Sex Assigned at Not on file Legal Sex Female 11:59 AM EDT Gender Identity Not on file Sexual Orientation Not on file Plan of Treatment Health Maintenance Due Date Last Done Comments DEPRESSION SCREENING 1967 SMOKING Hx and SMOKELESS TOBACCO SCREENING 07/27/1968 MAMMOGRAM 1995 COLOGUARD 07/27/2000 COLONOSCOPY 07/27/2000 COLORECTAL CANCER SCREENING 07/27/2000 FIT TEST 07/27/2000 FOBT 07/27/2000 SIGMOIDOSCOPY 07/27/2000 VIRTUAL COLONOSCOPY 07/27/2000 PNEUMOCOCCAL VACCINES (50+ years) (1 of 1 - PCV) 07/27/2005 ZOSTER VACCINES (1 of 2) 07/27/2005 OSTEOPOROSIS SCREENING INITI AL (ONE-TIME) 07/27/2020 INFLUENZA VACCINE (#1) 11/19/202401/18/ 9, 03/03/2008, 05/05/2007 COVID-19 VACCINE (1 - 2024-2 6 season) 2024 LIPID PANEL 05/09/2028 05/09/2023, 05/09/2023, 05/16/2021 RSV VACCINE (1 - 1-dose 75+ series) 07/27/2030 Adult Td,Tdap Booster 08/25/2030 08/25/2020 , 08/31/2009 HEPATITIS C SCREENING Completed 05/17/2020 HEPATITIS A VACCINES Aged Out No long er eligible based on patient's age to complete this topic HIB VACCINES Aged Out No longer eligi ble based on patient's age to complete this topic MENINGOCOCCAL VACCINES (ACWY) Aged Out No longer eligible based on patient's age to complete this topic MENINGOCOCCAL VACCINES (B) Aged Out N o longer eligible based on patient's age to complete this topic Medical Devices Not on file Insurance MEDICARE PART A & B [facility]REF [facility] MEDICARE REPLACEMENT MEDICARE PART A & B PREF VALUE MEDICARE REPLACEMENT DANNY THOMAS [id number] MEDICARE PART A & B [facility] SAULT VALUE MEDICARE REPLACEMENT MEDICARE PART A & B [facility] MEDICARE REPLACEMENT DANNY THOMAS [id number] MEDICARE PART A & B [facility] MEDICARE REPLACEMENT MEDICARE PART A & B [facility] PREF VALUE MEDICARE REPLACEMENT Care Teams Sales Recruiting Coordinator Relationship Specialty Start Date End Date Pcp, Unknown PCP - General 10/03/23 Additional Source Comments The information contained in this document represents components of the legal health record. It is not the complete legal health record.[facility]
--- OUTSIDE RECORDS SUMMARY | 2025-04-06 11:06 | XMS_ITS | Clinical Summary ---
Author Organization [facility] Address [address] [place] [address] Care Team Providers Care Development Educator Name Role Phone Unavailable Primary Care Provider Unavailabl e Social History Tobacco Use Types Packs/Day Years Used Date Smoking Tobacco: Never Assessed Comments Unknown Sex and Gender Information Value Date Recorded Sex Assigned at Female 05/21/2022 12:55 PM EST Legal Sex Female 2:32 AM EST Gender Identity Female 05/21/2022 12:55 PM EST Sexual Orientation Straight 05/21/2022 12 :55 PM EST Last Filed Vital Signs Vital Sign Reading Time Taken Comments Blood Pressure 145/88 01/18/2020 1:30 PM EDT Pulse 80 01/18/2020 1:30 PM EDT Temperature - - Respiratory Rate 16 01/18/2020 1:30 PM EDT Oxygen Saturation 96% 01/18/2020 1:30 PM EDT Inhaled Oxygen Concentration - - Weight 81.6 kg (180 lb) 01/18/2020 1:30 PM EDT Height 162.6 cm (5' 4 ) 01/18/2020 1:30 PM EDT Body Mass Index 30.9 01/18/2020 1:30 PM EDT Plan of Treatment Health Maintenance Due Date Last Done Comments Bone Density Scan 1955 CT Colonography 1955 Colonoscopy 1955 Colorectal Cancer Screening 1955 FIT-DNA 1955 FIT 1955 FOBT 1955 Sigmoidoscopy 1955 Diabetes: Retinopathy Screening 1955 Diabetes: Foot Exam 07/27/1965 Mammogram 1995 Lipid Panel 05/16/2022 05/16/2021, 05/17/2020 Medicare Annual Wellness (AWV) 08/19/2022 Diabetes: Urine Protein Screening 09/24/2022 09/24/2021, 05/16/2021 Diabetes: Hemoglobin A1C 09/13/2023 023, 09/12/2022, 01/03/2022, Additional history exists Depression Screening 04/21/2024 COVID-19 Vaccine ( season) 2024 03/23/2021, 07/22/2020, 07/15/2020, Additional history exists Influenza Vaccine (#1) 2024 , 01/26/2020, 01/12/2020, Additional history exists DTaP/Tdap/Td Vaccines (3 - Td or Tdap) 08/25/2030 08/25/2020, 08/31/2009 Hepatitis C Screening Completed 05/17/2020 Zoster Vaccines Completed 08/11/2020, 05/17/2020 Pneumococcal Vaccine: 50+ Years Completed 09/21/2021, 08/11/2020, 06/03/2018, Additional history exists Pneumococcal Vaccine: Pediatrics (0 to 5 Years) and At-Risk Patients (6 to 49 Years) Discontinued 09/21/2021, 08/11/2020, 06/03/2018, Additional history exists HIB Vaccines Aged Out No longer eligi ble based on patient's age to complete this topic HPV Vaccines (No Doses Required) Completed Hepatitis A Vaccines Aged Out No long [...] patient's age to complete this topic Meningococcal Vaccine Aged Out No juan c joanna eligible based on patient's age to complete this topic Rotavirus Vaccines Aged Out No longer eligible based on patient's age to complete this topic Medical Devices Implanted Type Area Citrus Peeler Device Identifier Shelf Expiration Date Model / Serial / Lot [id number] Vigilant X4 Founder & Ceo-D [id number] Implanted: (Quantity not on file) CLINICAL PHARMACIST-D ICD [employer] X4 CLINICAL PHARMACIST-D [id number] / [id number] / [id number] Endotak Hana 4-Site Sg [id number] Implanted:02/2012 (Quantity not on file) Cardiac Lead [employer] 0292 ENDOTAK RELIANCE 4-SITE SG / [id number] / [id number] Acuity X4 Spiral Long [id number] Implanted: (Quantity not on file) Cardiac Lead [employer] 4677 ACUITY X4 SPIRAL LONG / [id number] / [id number] Ingevity Mri [id number] Implanted: (Quantity not on file) Cardiac Lead [employer] 7741 INGEVITY MRI / [id number] / Insurance [facility] MEDICARE REPLACEMENT DANNY THOMAS [id number]
== END 2025-04-06 10:01 | disposition home or self-care (01) ==
LOC: HO.HKAS 09:37
PROVIDERS: PCP Internal Medicine; Visit Provider Internal Medicine Hypertension Specialist
DX: N18.9 Chronic kidney disease, unspecified (principal); I50.9 Heart failure, unspecified; E03.9 Hypothyroidism, unspecified; E11.22 Type 2 diabetes mellitus with diabetic chronic kidney disease
CPT/HCPCS: 99214

== ENCOUNTER → 2025-04-06 09:36 | Outpatient (BNVA) | payer OTHER, SELFPAY | PROVIDERS: PCP Internal Medicine; Visit Provider Internal Medicine Hypertension Specialist | DX: I13.0 Hypertensive heart and chronic kidney disease with heart failure and stage 1 through stage 4 chronic kidney disease, or unspecified chronic kidney disease (principal); I50.9 Heart failure, unspecified; E11.22 Type 2 diabetes mellitus with diabetic chronic kidney disease; N18.9 Chronic kidney disease, unspecified; E03.9 Hypothyroidism, unspecified; D63.1 Anemia in chronic kidney disease; R80.9 Proteinuria, unspecified; Z79.899 Other long term (current) drug therapy; Z87.891 Personal history of nicotine dependence | CPT/HCPCS: 99212 ==